=== PATIENT | male | born 1955 | race Caucasian/White ===

== ENCOUNTER → 2018-07-21 | Outpatient (CLI) | payer OTHER ==
--- NOTE | 2018-07-22 11:35 | ECHOF ---
Referral Reason:I25.10, I49.9, I25.2 MEASUREMENTS -------- HEIGHT: 172.7 cm WEIGHT: 92.5 kg BP: 120/70 RVIDd: 3.4 cm (< 3.3) IVSd: 1.3 cm (0.6 - 1.1) LVIDd: 4.2 cm (3.9 - 5.3) LVPWd: 1.2 cm (0.6 - 1.1) IVSs: 1.7 cm LVIDs: 2.7 cm LVPWs: 1.8 cm LA Diam: 3.3 cm (2.7 - 3.8) LAESV Index (A-L): 23.18 ml/m Ao Diam: 3.8 cm (2.0 - 3.7) AV Cusp: 2.4 cm (1.5 - 2.6) MV EXCURSION: 13.059 mm (> 18.000) MV EF SLOPE: 49 mm/s (70 - 150) EPSS: 0.7 cm MV E Addison: 0.76 m/s MV DecT: 261 ms MV A Addison: 1.05 m/s MV E/A Ratio: 0.72 FINDINGS -------- Sinus rhythm. This was a technically good study. The left ventricular size is normal. There is mild concentric left ventricular hypertrophy. Overa ll left ventricular systolic function is normal with, an EF between 60 - 65 %. The right ventricle is mildly enlarged. Normal LA size by volume 22+/-6 ml/m2. The right atrium is normal in size. Interatrial and interventricular septum intact. The aortic valve is trileaflet and appears structurally normal. The mitral valve leaflets are mildly thickened. The tricuspid valve appears structurally normal. Trace/mild (physiologic) pulmonic regurgitation. The aortic root is dilated measuring 3.8cm. Normal inferior vena cava with normal inspiratory collapse consistent with estimated right atrial pre ssure of 5 mmHg. There is no pericardial effusion. CONCLUSIONS -------- 1. Sinus rhythm. 2. This was a technically good study. 3. The left ventricular size is normal. 4. There is mild concentric left ventricular hypertrophy. 5. Overall left ventricular systolic function is normal with, an EF between 60 - 65 %. 6. The right ventricle is mildly enlarged. 7. Normal LA size by volume 22+/-6 ml/m2. 8. The right atrium is normal in size. 9. Interatrial and interventricular septum intact. 10. The aortic valve is trileaflet and appears structurally normal. 11. The mitral valve leaflets are mildly thickened. 12. The tricuspid valve appears structurally normal. 13. Trace/mild (physiologic) pulmonic regurgitation. 14. The aortic root is dilated measuring 3.8cm. 15. Normal inferior vena cava with normal inspiratory collapse consistent with estimated right atrial pressure of 5 mmHg. 16. There is no pericardial effusion. CARD RUNNER: Nadine Russell RDCS
--- NOTE | 2018-07-22 22:13 | EST ---
EXERCISE STRESS DATE OF SERVICE: 07/21/2018 AGE: 62 SEX: M HT: 68" WT: 214 lbs PROTOCOL: Karthik STAGE: III DURATION OF EXERCISE: 9 minutes HEART RATE REST: 67 BLOOD PRESSURE REST: 130/72 MAXIMUM HEART RATE ACHIEVED: 140 MAXIMUM BLOOD PRESSURE: 174/74 85% MPHR: 136 100% MPHR: 160 METS: 10.5 INDICATIONS: Chest pain. RESULTS: STRESS DATA: Pretesting physical examination showed a heart rate of 67, pressure 130/72 mmHg. Baseline EKG showed sinus mechanism. The patient exercised on the Karthik protocol for a total of 9 minutes and achieved max heart rate of 140 which is about 88% of maximum predicted heart rate. Maximum pressure blood pressure was 174/74 mmHg. Clinically the patient did not have any symptoms of chest pain or discomfort and the EKG did not show any significant ST or T-wave abnormalities concerning for ischemia. CONCLUSION: 1. Excellent exercise tolerance. 2. Normal EKG in response to exercise. 3. Essentially normal stress test. MMODL / IJN: [id number] /
== END | disposition home or self-care (01) ==
LOC: RADNMMAIN 08:04
PROVIDERS: ATTEND Family Medicine
DX: I25.10 Atherosclerotic heart disease of native coronary artery without angina pectoris (principal); I49.9 Cardiac arrhythmia, unspecified; I25.2 Old myocardial infarction
CPT/HCPCS: 93017; 93306

== ENCOUNTER → 2023-05-07 | Day surgery (SDC) | payer MEDICARE, OTHER ==
[~2023-05-07] MED LIST: LIDOCAINE 1% INJ 10MG/ML (20 ML MDV) ONE; PROPOFOL 10 MG/ML 20 ML VIAL IV ONE
[2023-05-07 10:22] VITALS: TEMP 97.6
[2023-05-07] MEDS: LACTATED RINGERS 1,000 ML IV SCH (10:28)
--- NOTE | 2023-05-07 11:09 | P.GSHP ---
History of Present Illness H&P Date: 05/07/23 Chief Complaint: Peptic ulcer disease This a 67-year-old male with complaints of epigastric pain. Patient presents today for EGD for peptic ulcer disease. Peptic ulcer disease. Past Medical History Past Medical History: Cancer Additional Past Medical History / Comment(s): Occasionally after eating stomach upset/diarrhea, skin cancer removed History of Any Multi-Drug Resistant Organisms: None Reported Past Surgical History: Orthopedic Surgery Additional Past Surgical History / Comment(s): L knee injury with surgery, R hand surgery/removed bones Past Anesthesia/Blood Transfusion Reactions: No Reported Reaction Smoking Status: Never smoker - Past Family History Father Additional Family Medical History / Comment(s): Fall with head injury/aneurysm. Medications and Allergies Home Medications Medication Instructions Recorded Confirmed Type Magnesium 400 mg PO DAILY 05/05/23 05/05/23 History Multivitamins, Thera [Multivitamin 1 tab PO QAM 05/05/23 05/05/23 History (formulary)] [place]-3/Dha/Epa/Fish Oil [Fish Oil 1 cap PO DAILY 05/05/23 05/05/23 History 500 mg Softgel] Zinc Gummies 2 cap PO DAILY 05/05/23 History Allergies Allergy/AdvReac Type Severity Reaction Status Date / Time No Known Allergies Allergy Verified 05/07/23 10:13 Surgical - Exam Vital Signs Temp Pulse Resp BP Pulse Ox 97.6 F 60 18 151/86 99 05/07/23 10:20 05/07/23 10:20 05/07/23 10:20 05/07/23 10:20 05/07/23 10:20 - General well developed, well nourished, no distress - Eyes PERRL - ENT normal pinna - Neck no masses - Abdomen Abdomen: soft, non tender Assessment and Plan Assessment: Epigastric pain. We'll perform EGD.
[2023-05-07 11:32] VITALS: RESP 16
[2023-05-07 11:33] VITALS: BP 143/85; PULSE 63
--- NOTE | 2023-05-14 14:52 | P.OP ---
Date of Procedure: 05/08/23 Preoperative Diagnosis: gastritis Postoperative Diagnosis: gastritis Procedure(s) Performed: EGD Anesthesia: MAC Surgeon: Brian Hines Pathology: other (antrum, esophagus) Condition: stable Disposition: PACU Description of Procedure: the patient was placed on the endoscopy table in the lateral position. He received IV sedation. The gas was placed oropharynx passing the esophagus and stomach. Scope was in place through the pylorus. The first and second portion of the duodenum appeared normal. Scope number [place] antrums. Mild inflamed. A biopsy was performed. The scope was then retroflexed remainder the stomach appeared normal. The GE junction was at 40 cm. The distal esophagus appeared mildly inflamed and a biopsy was performed. The proximal esophagus appeared normal. Scope withdrawn for the patient.
== END | disposition home or self-care (01) ==
LOC: ORWHC2ENDO 08:07
PROVIDERS: ATTEND Surgery
DX: K29.50 Unspecified chronic gastritis without bleeding (principal); B96.81 Helicobacter pylori [H. pylori] as the cause of diseases classified elsewhere; K27.9 Peptic ulcer, site unspecified, unspecified as acute or chronic, without hemorrhage or perforation; Z85.828 Personal history of other malignant neoplasm of skin; Z79.899 Other long term (current) drug therapy
CPT/HCPCS: 88305; 88342; 43239; J2001; J2704